=== PATIENT | male | born 1930 | race African-American/Black ===

== ENCOUNTER → 2016-11-20 | Outpatient (CLI) | payer MEDICARE ==
[~2016-11-20] MED LIST: FERR324T4 PO; GLUCTAB PO; METF-324 PO; SIMV5TAB32 PO
--- NOTE | 2016-11-20 11:33 | EKG ---
Date Performed: 11/20/2016 Time Performed: 10:15:58 PTAGE: 86 years EKG: Sinus rhythm with PAC(s) with 1st degree A-V block. Right bundle branch block Abnormal ECG PREVIOUS TRACING : 04/10/2011 12.22 DOCTOR: Irving Tejada Interpretating Date/Time 11/20/2016 11:31:06
== END ==
LOC: HCAV 10:08
PROVIDERS: ATTEND Ophthalmology
DX: Z01.810 Encounter for preprocedural cardiovascular examination (principal); H25.12 Age-related nuclear cataract, left eye
CPT/HCPCS: 93005